=== PATIENT | female | born 1995 | race Caucasian/White ===

== ENCOUNTER 2021-01-27 10:06 | Inpatient (IN) | payer OTHER ==
[~2021-01-27] VITALS: Ht 167.6 cm; Wt 76.7 kg
[~2021-01-27 10:06] MED LIST: FEOSOL325 MG PO; PROTONIX 40MG T40 MG PO; ZOLOFT50 MG PO
[2021-01-27 11:14] LABS: BILIRUBIN NEGATIVE (NEGATIVE); BLOOD NEGATIVE Ery/uL (NEGATIVE); CLARITY CLEAR (CLEAR); COLOR YELLOW (YELLOW); GLUCOSE (U) NORMAL (NORMAL); LEUKOCYTES 1+ Leu/uL (NEGATIVE); NITRITE NEGATIVE (NEGATIVE); PROTEIN NEGATIVE (NEGATIVE); pH 6.5 (5.0-9.0)
[2021-01-27 11:18] LABS: HCT 34.9 % (37.0-47.0); HGB 11.7 g/dl (12.5-16.0); MCHC 33.5 g/dL (32.0-36.0); MCV 89.5 fL (78.0-100.0); MPV 9.4 fL (6.0-9.5); RBC 3.9 M/uL (4.20-5.40); RDW 14.6 % (11.5-14.0); WBC 7.2 K/uL (4.0-10.5)
[2021-01-27 11:29] LABS: BACTERIA 1+; URINARY WBC TNTC
[2021-01-28 06:22] LABS: HCT 32.5 % (37.0-47.0); HGB 10.7 g/dl (12.5-16.0); MCH 29.6 pg (25.0-31.0); MCHC 32.9 g/dL (32.0-36.0); MCV 89.8 fL (78.0-100.0); MPV 9.4 fL (6.0-9.5); RBC 3.62 M/uL (4.20-5.40); RDW 14.6 % (11.5-14.0); WBC 8.5 K/uL (4.0-10.5)
== END 2021-01-29 16:55 | disposition home or self-care (01) | DRG 806 ==
LOC: FOB 10:06
PROVIDERS: ADMIT Obstetrics & Gynecology
PROC: 10E0XZZ Delivery of Products of Conception, External Approach (ICD-10-PCS; principal; 2021-01-27)
PROC: 3E033VJ Introduction of Other Hormone into Peripheral Vein, Percutaneous Approach (ICD-10-PCS; 2021-01-27)
PROC: 10907ZC Drainage of Amniotic Fluid, Therapeutic from Products of Conception, Via Natural or Artificial Opening (ICD-10-PCS; 2021-01-27)
DX: O34.211 Maternal care for low transverse scar from previous cesarean delivery (principal); D62 Acute posthemorrhagic anemia; Z37.0 Single live birth; O98.32 Other infections with a predominantly sexual mode of transmission complicating childbirth; O24.429 Gestational diabetes mellitus in childbirth, unspecified control; Z20.822 Contact with and (suspected) exposure to COVID-19; O99.02 Anemia complicating childbirth; Z3A.39 39 weeks gestation of pregnancy; A60.00 Herpesviral infection of urogenital system, unspecified; Z88.0 Allergy status to penicillin; O99.344 Other mental disorders complicating childbirth; F32.9 Major depressive disorder, single episode, unspecified; O69.81X0 Labor and delivery complicated by cord around neck, without compression, not applicable or unspecified
CPT/HCPCS: 36415; 81001; 82947; 86900; 86901; J7120; U0002